=== PATIENT | female | born 1985 | race Caucasian/White ===

== ENCOUNTER → 2016-05-28 | Outpatient (CLI) | payer OTHER ==
[~2016-05-28] MED LIST: BCPILLS PO; ONDA4TAB7 SL; SERT50TA PO
[2016-05-28 13:52] LABS: URINE APPEARANCE CLEAR (CLEAR); URINE BILIRUBIN NEG (NEG); URINE COLOR YELLOW; URINE NITRITE NEG (NEG); URINE SPECIFIC GRAVITY 1.007 (1.000-1.030); UROBILINOGEN NEG (NEG)
[2016-05-28 14:00] LABS: MANUAL MICROSCOPIC REQUIRED? NO; REVIEW REQ? NO
== END | disposition home or self-care (01) ==
LOC: C.LABSPEC 15:21
PROVIDERS: ATTEND Obstetrics & Gynecology
DX: Z34.01 Encounter for supervision of normal first pregnancy, first trimester (principal)

== ENCOUNTER → 2016-06-03 | Outpatient (CLI) | payer OTHER ==
[2016-06-03 18:23] LABS: BASO % 0.2 %; BASO ABS # 0.02 K/uL (0-0.2); COMPLETE YES; EOS % 1.7 %; HEMATOCRIT 37.8 % (37-47); IG% 0.3 %; LYMPH % 36.5 %; LYMPH ABS # 3.92 K/uL (1.2-3.4); MEAN CELL VOLUME 83.4 fL (80-100); MEAN CORPUSCULAR HEMOGLOBIN 28.7 pg (25-34); MEAN CORPUSCULAR HGB CONC 34.4 g/dl (32-36); MEAN PLATELET VOLUME 9.8 fL (7.4-10.4); MONO % 5.1 %; NEUT % 56.2 %; PLATELET COUNT 256 K/uL (130-400); RED BLOOD COUNT 4.53 M/uL (4.2-5.4); WHITE BLOOD COUNT 10.75 K/uL (4.8-10.8)
[2016-06-03 18:53] LABS: ALT/SGPT 23 U/L (12-78); AST/SGOT 10 U/L (15-37); BLOOD UREA NITROGEN 11 mg/dl (7-18); BUN/CREATININE RATIO 16.8 (10-20); CALCIUM 8.9 mg/dl (8.5-10.1); CARBON DIOXIDE 27 mmol/L (21-32); CHLORIDE 105 mmol/L (98-107); CREATININE 0.64 mg/dl (0.60-1.20); GLUCOSE 82 mg/dl (70-99); POTASSIUM 3.3 mmol/L (3.5-5.1); SODIUM 139 mmol/L (136-145)
[2016-06-03 18:56] LABS: ALB/GLOB RATIO 1.2 (0.9-2); ALKALINE PHOSPHATASE 79 U/L (45-117)
== END | disposition home or self-care (01) ==
LOC: C.LAB1850 17:20
PROVIDERS: ATTEND Obstetrics & Gynecology
DX: Z34.01 Encounter for supervision of normal first pregnancy, first trimester (principal); O36.5910 Maternal care for other known or suspected poor fetal growth, first trimester, not applicable or unspecified

== ENCOUNTER → 2016-06-07 | Outpatient (CLI) | payer OTHER | END | disposition home or self-care (01) | LOC: C.LAB 10:21 | PROVIDERS: ATTEND Obstetrics & Gynecology | DX: O00.80 Other ectopic pregnancy without intrauterine pregnancy (principal); Z3A.00 Weeks of gestation of pregnancy not specified ==

== ENCOUNTER → 2016-06-10 | Outpatient (CLI) | payer OTHER ==
[2016-06-10 17:01] LABS: BASO % 0.1 %; BASO ABS # 0.01 K/uL (0-0.2); COMPLETE YES; EOS % 2.4 %; HEMATOCRIT 37.6 % (37-47); IG% 0.2 %; MEAN CELL VOLUME 83.6 fL (80-100); MEAN CORPUSCULAR HEMOGLOBIN 28.9 pg (25-34); MEAN CORPUSCULAR HGB CONC 34.6 g/dl (32-36); MEAN PLATELET VOLUME 9.1 fL (7.4-10.4); MONO % 4.8 %; NEUT % 51.5 %; PLATELET COUNT 249 K/uL (130-400); WHITE BLOOD COUNT 8.29 K/uL (4.8-10.8)
[2016-06-10 17:27] LABS: ALT/SGPT 20 U/L (12-78); BLOOD UREA NITROGEN 8 mg/dl (7-18); BUN/CREATININE RATIO 12.6 (10-20); CALCIUM 9.1 mg/dl (8.5-10.1); CARBON DIOXIDE 27 mmol/L (21-32); CHLORIDE 104 mmol/L (98-107); CREATININE 0.66 mg/dl (0.60-1.20); GLUCOSE 81 mg/dl (70-99); POTASSIUM 3.7 mmol/L (3.5-5.1); SODIUM 139 mmol/L (136-145)
[2016-06-10 17:30] LABS: ALB/GLOB RATIO 1.1 (0.9-2); ALKALINE PHOSPHATASE 82 U/L (45-117); AST/SGOT 11 U/L (15-37)
== END | disposition home or self-care (01) ==
LOC: C.LAB 16:35
PROVIDERS: ATTEND Obstetrics & Gynecology
DX: O00.80 Other ectopic pregnancy without intrauterine pregnancy (principal)

== ENCOUNTER → 2016-06-17 | Outpatient (CLI) | payer OTHER | END | disposition home or self-care (01) | LOC: C.LAB 17:24 | PROVIDERS: ATTEND Obstetrics & Gynecology | DX: O00.80 Other ectopic pregnancy without intrauterine pregnancy (principal) ==

== ENCOUNTER → 2016-06-24 | Outpatient (CLI) | payer OTHER | END | disposition home or self-care (01) | LOC: C.LAB 17:19 | PROVIDERS: ATTEND Obstetrics & Gynecology | DX: O00.80 Other ectopic pregnancy without intrauterine pregnancy (principal); Z3A.00 Weeks of gestation of pregnancy not specified ==

== ENCOUNTER → 2016-07-01 | Outpatient (CLI) | payer OTHER | END | disposition home or self-care (01) | LOC: C.LAB 18:04 | PROVIDERS: ATTEND Obstetrics & Gynecology | DX: O00.80 Other ectopic pregnancy without intrauterine pregnancy (principal) ==

== ENCOUNTER → 2017-01-30 | Outpatient (CLI) | payer OTHER | END | disposition home or self-care (01) | LOC: C.LAB1850 10:28 | PROVIDERS: ATTEND Obstetrics & Gynecology | DX: O00.80 Other ectopic pregnancy without intrauterine pregnancy (principal); O99.89 Other specified diseases and conditions complicating pregnancy, childbirth and the puerperium ==

== ENCOUNTER → 2017-03-10 | Outpatient (CLI) | payer OTHER | END | disposition home or self-care (01) | LOC: C.LAB1850 15:26 | PROVIDERS: ATTEND Obstetrics & Gynecology | DX: O20.0 Threatened abortion (principal); Z3A.00 Weeks of gestation of pregnancy not specified ==

== ENCOUNTER → 2017-03-18 | Outpatient (CLI) | payer OTHER | END | disposition home or self-care (01) | LOC: C.LAB1850 13:55 | PROVIDERS: ATTEND Obstetrics & Gynecology | DX: O02.1 Missed abortion (principal) ==

== ENCOUNTER → 2017-03-25 | Outpatient (CLI) | payer OTHER | END | disposition home or self-care (01) | LOC: C.LAB1850 10:47 | PROVIDERS: ATTEND Obstetrics & Gynecology | DX: O02.1 Missed abortion (principal) ==

== ENCOUNTER → 2017-04-02 | Outpatient (CLI) | payer OTHER | END | disposition home or self-care (01) | LOC: C.LAB1850 09:49 | PROVIDERS: ATTEND Obstetrics & Gynecology | DX: O02.1 Missed abortion (principal) ==

== ENCOUNTER 2018-09-21 05:58 | Inpatient (IN) ==
[2018-09-21] MEDS: LACTATED RINGER'S 1,000 ML IV PRN ×2 (06:25→08:57)
[2018-09-21] MEDS ORDERED: OXYTOCIN 30 UNITS/500 ML BAG IV PRN ×2 (06:27→15:32)
--- NOTE | 2018-09-21 06:33 | History & Physical Report ---
Date of Service September 21, 2018 Assessment & Plan (1) Prolonged , antepartum: - patient had been scheduled for induction - patient in active labor - pt desires epidural - anticipate History of Present Illness Chief Complaint: contractions Primary Care Provider: Jason Gutierrez MD The patient is a 32-year-old 4 para 0 with an EDC of 13 September by first trimester ultrasound admitted, at 41 weeks gestational age admitted for labor check. The patient states her contractions began at approximately 0100 hrs. and increased in intensity. The patient had been scheduled for an induction today and had had a cervical Abreu placed last evening. Patient states that the Abreu dislodged at approximately 0130 hrs. The patient has had a benign course. The father of the baby carries a diagnosis of neurofibromatosis. The patient and the partner had been offered a genetics [facility] consult but declined. Laboratory values for the show a blood type of O+, antibody negative, rubella immune, hepatitis B negative, she had a negative quad screen, she had a normal 1 hour Glucola x2, and a negative third trimester beta strep culture Allergies Allergy/AdvReac Type Severity Reaction Status Date / Time No Known Allergies AdvReac Unknown Verified 09/21/18 06:16 Home Medications Home Medications Medication Instructions Recorded Confirmed Type vit no.[id number] 1 tab PO DAILY 09/20/18 09/21/18 History [ Vitamin] sertraline [Zoloft] 150 mg PO DAILY 09/20/18 09/21/18 History Patient History Medical History Sleep disturbance (Acute) Maternal morbid obesity, antepartum (Acute) Lactose intolerance (Acute) Encounter for supervision of normal first in third trimester (Acute) Depression with anxiety (Acute) was taking zoloft 150mg, stopped over a month ago Allergic rhinitis (Acute) Low back pain (Acute) (Resolved) Kidney stone Surgical History Hx of oral surgery Family History Aunt Diabetes Social History Preferred Language: Estonian marital status: Current Living Situation: Family current occupational status: employed Feels Safe at Home: Yes Smoking Status: Current every day smoker Tobacco Type: cigarettes Cigarettes Per Day: 5 Hx Alcohol Use: No Hx Substance Use: No Physical Exam Constitutional: WD/WN, vitals as above Respiratory: Auscultation: lungs clear to auscultation bilaterally Cardiovascular: RRR, no murmur, no edema Extremities: no calf tenderness Gastrointestinal (Abdomen): Gravid, vtx, (+) FHT's, EFW 7 1/2 LBS Genitourinary: OB Exam Monitor Tracing: + category I and + normal FHT variability Cervix: 5/80/-2 Results & Data Vital Signs (Past 12 Hours) Vital Signs Pulse BP 09/21/18 06:08 89 157/79 H
[2018-09-21] MEDS ORDERED: BUPIVACAINE 0.25% 30 ML VIAL ONE ×2 (06:34→09:53)
[2018-09-21] MEDS ORDERED: fentaNYL citrate 100 MCG/2 ML VIAL ONE ×2 (06:35→09:53)
[2018-09-21] MEDS ORDERED: ePHEDrine sulfate 50 MG/ML AMP ONE (06:35)
[2018-09-21] MEDS ORDERED: fentaNYL 2MCG/ML ROPIV 1.25MG/ML 100 ML BAG EPI ONE (06:35)
[2018-09-21 06:44] LABS: Hematocrit (blood only) 33.8 % (37-47); Hemoglobin 11.4 g/dL (12.0-16.0); Mean Corpuscular Volume 81.6 fL (80-100); Mean Platelet Volume 11.2 fL (7.4-10.4); Platelet Count 246 K/uL (130-400); RDW Coefficient of Variation 13.9 % (11.5-14.5); RDW Standard Deviation 41.9 fL (36.4-46.3); Red Blood Count 4.14 M/uL (4.2-5.4)
[2018-09-21 06:45] LABS: Mean Corpuscular Hgb Conc 33.7 g/dL (32-36)
--- NOTE | 2018-09-21 07:02 | Anesthesiology Consultation ---
Date of Service September 21, 2018 Assessment & Plan (1) Encounter for pre-operative examination: Chart Review Chart Review: Acceptable Risk for Labor Epidural History Height/Weight Height: 5 ft 6 in Weight: 111.584 kg Allergies Allergy/AdvReac Type Severity Reaction Status Date / Time No Known Allergies Allergy Verified 09/21/18 06:35 Medications Home Medications Medication Instructions Recorded Confirmed Last Taken vit no.[id number] 1 tab PO DAILY 09/20/18 09/21/18 09/20/18 [ Vitamin] sertraline [Zoloft] 150 mg PO DAILY 09/20/18 09/21/18 Unknown Active Medications Generic Name Dose Route Start Last Admin Trade Name Freq PRN Reason Stop Dose Admin Lactated Ringer's 1,000 mls @ 125 mls/hr 09/21/18 06:27 09/21/18 06:25 Lr IV 09/23/18 06:26 999 mls/hr .Q8H PRN Administration L&D Protocol Protocol Past Medical History Medical History Sleep disturbance (Acute) Maternal morbid obesity, antepartum (Acute) Lactose intolerance (Acute) Encounter for supervision of normal first in third trimester (Acute) Depression with anxiety (Acute) was taking zoloft 150mg, stopped over a month ago Allergic rhinitis (Acute) Low back pain (Acute) (Resolved) Kidney stone Past Family History Family History Aunt Diabetes Past Surgical History Surgical History Hx of oral surgery Social History Smoking Status: Current every day smoker tobacco type: cigarettes Smoking cigarettes per day: 5 Do You Dip or Chew Tobacco: No Hx Alcohol Use: No Hx Substance Use: No substance use type: does not use Physical Exam Vital Signs Last Vital Signs Temp 36.8 C 09/21/18 06:18 Pulse 89 09/21/18 06:18 Resp 20 09/21/18 06:18 BP 157/79 H 09/21/18 06:18 Testing Laboratory Results 09/21/18 06:33
[2018-09-21] MEDS ORDERED: NALOXONE HCL 0.4 MG/1 ML VIAL/CARP IV PRN (07:34)
[2018-09-21] MEDS ORDERED: ONDANSETRON INJ 2 MG/ML 2 ML VIAL IV PRN (07:34)
[2018-09-21] MEDS ORDERED: NALOXONE HCL 1 MG in SODIUM CHLORIDE 0.9% 1000ML 1,000 ML IV PRN (07:34)
[2018-09-21] MEDS ORDERED: ePHEDrine sulfate 50 MG/ML AMP IV PRN (07:34)
[2018-09-21] MEDS ORDERED: fentaNYL 2MCG/ML ROPIV 1.25MG/ML 100 ML BAG EPI PRN (07:34)
--- NOTE | 2018-09-21 10:40 | Obstetrical Progress Note ---
Date of Service September 21, 2018 Subjective Comfortable with epidural redose. FHT Cat 1 [place] Q 3-4 min Results & Data Vital Signs (Past 12 Hours) Vital Signs Temp Pulse Resp BP Pulse Ox 09/21/18 10:37 113 H 120/59 L 09/21/18 10:35 127 H 96 09/21/18 10:30 106 H 96 09/21/18 10:25 100 H 96 09/21/18 10:22 90 93 09/21/18 10:20 105 H 96 09/21/18 10:17 87 108/57 L 94 09/21/18 10:15 112 H 16 95 09/21/18 10:13 107 H 116/55 L 09/21/18 10:12 92 H 94 09/21/18 10:09 93 H 94 09/21/18 10:07 121 H 108/65 09/21/18 10:04 110 H 97 09/21/18 10:01 107 H 115/67 09/21/18 10:00 20 09/21/18 09:59 114 H 95 09/21/18 09:54 104 H 96 09/21/18 09:51 108 H 94 09/21/18 09:49 106 H 95 09/21/18 09:47 99 H 120/58 L 09/21/18 09:44 90 96 09/21/18 09:39 116 H 97 09/21/18 09:34 116 H 96 09/21/18 09:33 123 H 139/74 09/21/18 09:30 20 09/21/18 09:29 122 H 94 09/21/18 09:24 127 H 97 09/21/18 09:19 103 H 97 09/21/18 09:17 100 H 130/72 09/21/18 09:15 76 93 09/21/18 09:14 93 H 93 09/21/18 09:10 79 94 09/21/18 09:09 83 95 09/21/18 09:04 97 H 96 09/21/18 09:03 92 H 94 09/21/18 09:02 85 131/68 09/21/18 09:00 18 09/21/18 08:59 93 H 96 09/21/18 08:55 88 94 09/21/18 08:54 91 H 96 09/21/18 08:49 103 H 97 09/21/18 08:47 100 H 127/77 09/21/18 08:44 78 93 09/21/18 08:40 75 93 09/21/18 08:39 77 95 09/21/18 08:34 79 94 09/21/18 08:32 78 126/63 09/21/18 08:30 18 09/21/18 08:29 81 95 09/21/18 08:27 95 H 94 09/21/18 08:24 99 H 95 09/21/18 08:19 87 97 09/21/18 08:17 78 121/59 L 09/21/18 08:15 18 09/21/18 08:14 81 95 09/21/18 08:13 88 94 09/21/18 08:09 80 94 09/21/18 08:08 76 94 09/21/18 08:04 91 H 95 09/21/18 08:02 85 133/64 09/21/18 08:00 18 09/21/18 07:59 90 97 09/21/18 07:54 87 98 09/21/18 07:49 89 96 09/21/18 07:46 94 H 133/63 09/21/18 07:45 20 09/21/18 07:44 99 H 96 09/21/18 07:42 92 H 131/72 09/21/18 07:39 94 H 97 09/21/18 07:38 94 H 129/67 09/21/18 07:34 96 H 120/65 97 09/21/18 07:30 96 H 20 126/66 09/21/18 07:29 96 H 97 09/21/18 07:27 100 H 130/68 09/21/18 07:24 102 H 97 09/21/18 07:23 100 H 166/77 H 09/21/18 07:19 114 H 98 09/21/18 07:18 105 H 161/80 H 09/21/18 07:15 109 H 22 163/78 H 09/21/18 07:14 109 H 98 09/21/18 07:12 93 H 159/76 H 09/21/18 07:07 36.9 C 103 H 18 149/80 H 09/21/18 06:18 36.8 C 89 20 157/79 H 09/21/18 06:08 36.8 C 89 20 157/79 H
--- NOTE | 2018-09-21 11:14 | Obstetrical Progress Note ---
Date of Service September 21, 2018 Subjective Comfortable with epidural. FHT Cat 1 [place] Q 2-3 SVE 9/100/-1. AROM clear fluid. Results & Data Vital Signs (Past 12 Hours) Vital Signs Temp Pulse Resp BP Pulse Ox 09/21/18 11:10 127 H 96 09/21/18 11:08 115 H 131/75 09/21/18 11:05 93 H 93 09/21/18 11:00 124 H 96 09/21/18 10:55 97 H 94 09/21/18 10:52 106 H 116/57 L 09/21/18 10:50 102 H 93 09/21/18 10:49 109 H 93 09/21/18 10:45 117 H 96 09/21/18 10:40 102 H 93 09/21/18 10:37 113 H 120/59 L 09/21/18 10:35 127 H 96 09/21/18 10:30 106 H 96 09/21/18 10:25 100 H 96 09/21/18 10:22 90 93 09/21/18 10:20 105 H 96 09/21/18 10:17 87 108/57 L 94 09/21/18 10:15 112 H 16 95 09/21/18 10:13 107 H 116/55 L 09/21/18 10:12 92 H 94 09/21/18 10:09 93 H 94 09/21/18 10:07 121 H 108/65 09/21/18 10:04 110 H 97 09/21/18 10:01 107 H 115/67 09/21/18 10:00 20 09/21/18 09:59 114 H 95 09/21/18 09:54 104 H 96 09/21/18 09:51 108 H 94 09/21/18 09:49 106 H 95 09/21/18 09:47 99 H 120/58 L 09/21/18 09:44 90 96 09/21/18 09:39 116 H 97 09/21/18 09:34 116 H 96 09/21/18 09:33 123 H 139/74 09/21/18 09:30 20 09/21/18 09:29 122 H 94 09/21/18 09:24 127 H 97 09/21/18 09:19 103 H 97 09/21/18 09:17 100 H 130/72 09/21/18 09:15 76 93 09/21/18 09:14 93 H 93 09/21/18 09:10 79 94 09/21/18 09:09 83 95 09/21/18 09:04 97 H 96 09/21/18 09:03 92 H 94 09/21/18 09:02 85 131/68 09/21/18 09:00 18 09/21/18 08:59 93 H 96 09/21/18 08:55 88 94 09/21/18 08:54 91 H 96 09/21/18 08:49 103 H 97 09/21/18 08:47 100 H 127/77 09/21/18 08:44 78 93 09/21/18 08:40 75 93 09/21/18 08:39 77 95 09/21/18 08:34 79 94 09/21/18 08:32 78 126/63 09/21/18 08:30 18 09/21/18 08:29 81 95 09/21/18 08:27 95 H 94 09/21/18 08:24 99 H 95 09/21/18 08:19 87 97 09/21/18 08:17 78 121/59 L 09/21/18 08:15 18 09/21/18 08:14 81 95 09/21/18 08:13 88 94 09/21/18 08:09 80 94 09/21/18 08:08 76 94 09/21/18 08:04 91 H 95 09/21/18 08:02 85 133/64 09/21/18 08:00 18 09/21/18 07:59 90 97 09/21/18 07:54 87 98 09/21/18 07:49 89 96 09/21/18 07:46 94 H 133/63 09/21/18 07:45 20 09/21/18 07:44 99 H 96 09/21/18 07:42 92 H 131/72 09/21/18 07:39 94 H 97 09/21/18 07:38 94 H 129/67 09/21/18 07:34 96 H 120/65 97 09/21/18 07:30 96 H 20 126/66 09/21/18 07:29 96 H 97 09/21/18 07:27 100 H 130/68 09/21/18 07:24 102 H 97 09/21/18 07:23 100 H 166/77 H 09/21/18 07:19 114 H 98 09/21/18 07:18 105 H 161/80 H 09/21/18 07:15 109 H 22 163/78 H 09/21/18 07:14 109 H 98 09/21/18 07:12 93 H 159/76 H 09/21/18 07:07 36.9 C 103 H 18 149/80 H 09/21/18 06:18 36.8 C 89 20 157/79 H 09/21/18 06:08 36.8 C 89 20 157/79 H
--- NOTE | 2018-09-21 13:13 | Obstetrical Progress Note ---
Date of Service September 21, 2018 Subjective Anterior lip of cervix, station 1+. Feeling very uncomfortable after epidural redose. Pushed against anterior lip, this slipped behind head. Now complete dilation, +1.5 station. Will continue to push. FHT with variable decelerations and early decels. [place] Q 2 min. Results & Data Vital Signs (Past 12 Hours) Vital Signs Temp Pulse Resp BP Pulse Ox 09/21/18 13:05 122 H 98 09/21/18 13:04 109 H 94 09/21/18 13:00 133 H 100 09/21/18 12:58 116 H 85 L 09/21/18 12:56 111 H 150/73 H 09/21/18 12:55 115 H 99 09/21/18 12:52 100 H 152/74 H 09/21/18 12:50 109 H 96 09/21/18 12:47 100 H 170/87 H 94 09/21/18 12:45 102 H 94 09/21/18 12:42 98 H 94 09/21/18 12:40 104 H 95 09/21/18 12:37 103 H 155/76 H 09/21/18 12:36 101 H 94 09/21/18 12:35 101 H 95 09/21/18 12:30 95 H 93 09/21/18 12:25 107 H 94 09/21/18 12:23 106 H 92 09/21/18 12:22 103 H 151/72 H 09/21/18 12:20 112 H 95 09/21/18 12:18 98 H 94 09/21/18 12:15 112 H 94 09/21/18 12:11 113 H 94 09/21/18 12:10 111 H 95 09/21/18 12:07 102 H 152/75 H 09/21/18 12:05 106 H 96 09/21/18 12:00 107 H 96 09/21/18 11:59 103 H 94 09/21/18 11:55 108 H 94 09/21/18 11:54 107 H 147/74 H 09/21/18 11:53 106 H 94 09/21/18 11:50 104 H 95 09/21/18 11:45 109 H 96 09/21/18 11:40 111 H 99 09/21/18 11:38 81 140/74 09/21/18 11:36 91 H 93 09/21/18 11:35 95 H 97 09/21/18 11:30 84 95 09/21/18 11:25 84 94 09/21/18 11:24 98 H 94 09/21/18 11:23 129 H 123/76 09/21/18 11:20 105 H 96 09/21/18 11:18 91 H 93 09/21/18 11:15 108 H 95 09/21/18 11:10 127 H 96 09/21/18 11:08 37.1 C 115 H 18 131/75 09/21/18 11:05 93 H 93 09/21/18 11:00 124 H 96 09/21/18 10:55 97 H 94 09/21/18 10:52 106 H 116/57 L 09/21/18 10:50 102 H 93 09/21/18 10:49 109 H 93 09/21/18 10:45 117 H 96 09/21/18 10:40 102 H 93 09/21/18 10:37 113 H 120/59 L 09/21/18 10:35 127 H 96 09/21/18 10:30 106 H 96 09/21/18 10:25 100 H 96 09/21/18 10:22 90 93 09/21/18 10:20 105 H 96 09/21/18 10:17 87 108/57 L 94 09/21/18 10:15 112 H 16 95 09/21/18 10:13 107 H 116/55 L 09/21/18 10:12 92 H 94 09/21/18 10:09 93 H 94 09/21/18 10:07 121 H 108/65 09/21/18 10:04 110 H 97 09/21/18 10:01 107 H 115/67 09/21/18 10:00 20 09/21/18 09:59 114 H 95 09/21/18 09:54 104 H 96 09/21/18 09:51 108 H 94 09/21/18 09:49 106 H 95 09/21/18 09:47 99 H 120/58 L 09/21/18 09:44 90 96 09/21/18 09:39 116 H 97 09/21/18 09:34 116 H 96 09/21/18 09:33 123 H 139/74 09/21/18 09:30 20 07/01/19 09:29 122 H 94 09/21/18 09:24 127 H 97 09/21/18 09:19 103 H 97 09/21/18 09:17 100 H 130/72 09/21/18 09:15 76 93 09/21/18 09:14 93 H 93 09/21/18 09:10 79 94 09/21/18 09:09 83 95 09/21/18 09:04 97 H 96 09/21/18 09:03 92 H 94 09/21/18 09:02 85 131/68 09/21/18 09:00 18 09/21/18 08:59 93 H 96 09/21/18 08:55 88 94 09/21/18 08:54 91 H 96 09/21/18 08:49 103 H 97 09/21/18 08:47 100 H 127/77 09/21/18 08:44 78 93 09/21/18 08:40 75 93 09/21/18 08:39 77 95 09/21/18 08:34 79 94 09/21/18 08:32 78 126/63 09/21/18 08:30 18 09/21/18 08:29 81 95 09/21/18 08:27 95 H 94 09/21/18 08:24 99 H 95 09/21/18 08:19 87 97 09/21/18 08:17 78 121/59 L 09/21/18 08:15 18 09/21/18 08:14 81 95 09/21/18 08:13 88 94 09/21/18 08:09 80 94 09/21/18 08:08 76 94 09/21/18 08:04 91 H 95 09/21/18 08:02 85 133/64 09/21/18 08:00 18 09/21/18 07:59 90 97 09/21/18 07:54 87 98 09/21/18 07:49 89 96 09/21/18 07:46 94 H 133/63 09/21/18 07:45 20 09/21/18 07:44 99 H 96 09/21/18 07:42 92 H 131/72 09/21/18 07:39 94 H 97 09/21/18 07:38 94 H 129/67 09/21/18 07:34 96 H 120/65 97 09/21/18 07:30 96 H 20 126/66 09/21/18 07:29 96 H 97 09/21/18 07:27 100 H 130/68 09/21/18 07:24 102 H 97 09/21/18 07:23 100 H 166/77 H 09/21/18 07:19 114 H 98 09/21/18 07:18 105 H 161/80 H 09/21/18 07:15 109 H 22 163/78 H 09/21/18 07:14 109 H 98 09/21/18 07:12 93 H 159/76 H 09/21/18 07:07 36.9 C 103 H 18 149/80 H 09/21/18 06:18 36.8 C 89 20 157/79 H 09/21/18 06:08 36.8 C 89 20 157/79 H
--- NOTE | 2018-09-21 15:20 | Procedure Note ---
Vaginal Delivery Summary Date of Service September 21, 2018 Vaginal Delivery Summary Vaginal Delivery Summary: Pre-delivery diagnoses: 32yo @ 41 03/30, induction of labor for postdates, FOB with neurofibromatosis, h/o miscarriage, obesity, tobacco use Post-delivery diagnoses: same, 2nd degree perineal laceration Procedure: spontaneous vaginal delivery, repair of 2nd degree perineal laceration Surgeon: Shi Lyons DO Complications: none Findings: Viable female . Apgars: 9/9 . Weight pending, please see nursery records. Estimated blood loss: 400ml Description of delivery: The patient progressed to complete with epidural anesthesia. She then began to push. She spontaneously vaginally delivered a viable female from the cephalic presentation. The head delivered in XAVI position. Nuchal cord x 1, delivered through. The anterior shoulder delivered, followed by the posterior shoulder, followed by the body. The baby was placed on mother's abdomen and a spontaneous cry was heard. Delayed cord clamping was employed, and the cord was doubly clamped and cut. Cord blood was obtained. Active management of the 3rd stage of labor, and avulsion of the umbilical cord occurred. The placenta was then delivered through manual extraction, intact with a 3-vessel cord. The uterus and vagina were swept of clots and debris. IV pitocin was given. The uterus became firm. The cervix, vagina, and perineum were inspected and a 2nd degree laceration was noted and repaired with 3-0 vicryl in standard fashion. Excellent hemostasis was observed. The mother and baby are recovering in stable and good condition in the room. Sponge, needle, and instrument counts were correct x 2. Will give ancef x 1 dose due to manual extraction of placenta. Patient wishes to restart her Zoloft after delivery. DO JASSON ValderramaG
[2018-09-21] MEDS ORDERED: ACETAMINOPHEN 325 MG TAB PO PRN (15:32)
[2018-09-21] MEDS ORDERED: DIPHTHERIA/TETANUS/PERTUSSIS 0.5 ML SYR/VIAL IM ONE (15:32)
[2018-09-21] MEDS ORDERED: OXYCODONE/ACETAMINOPHEN 5mg/325mg TAB PO PRN (15:32)
[2018-09-21] MEDS ORDERED: SUPERCREAM 0.870% 15 GM JAR EXT PRN (15:32)
[2018-09-21] MEDS ORDERED: CEFAZOLIN 1000MG 1,000 MG/7.5 ML SYR IV SCH (15:32)
[2018-09-21] MEDS ORDERED: HYDROCORTISONE ACETATE 25 MG SUPP PR PRN (15:32)
[2018-09-21] MEDS ORDERED: BENZOCAINE 20% AER SPR 82.5 GM CAN EXT PRN (15:32)
[2018-09-21] MEDS: IBUPROFEN 600 MG TAB PO PRN ×2 (15:59→21:04)
--- NOTE | 2018-09-21 16:14 | Anesthesia Procedure Note ---
Date of Service September 21, 2018 Anesthesia Post Epidural Note Vital Signs Vital Signs: Temp Pulse Resp BP Pulse Ox 36.8 C 108 H 18 140/75 92 09/21/18 14:45 09/21/18 16:00 09/21/18 14:45 09/21/18 16:00 09/21/18 14:07 Pain Intensity Bilateral Abdomen: Pain Intensity: 7 Notes Mental Status: alert / awake / arousable and participated in evaluation Nausea / Vomiting: adequately controlled Pain: adequately controlled Airway Patency, RR, SpO2: stable & adequate BP & HR: stable & adequate Hydration State: stable & adequate Neuraxial Anesthesia: was administered and sensory block is resolving Anesthetic Complications: no major complications apparent Epidural: Removed without complications and With tip intact
[2018-09-21] MEDS: DOCUSATE SODIUM 100 MG CAP PO SCH (21:04)
[2018-09-22] MEDS: IBUPROFEN 600 MG TAB PO PRN ×3 (03:19→16:31)
[2018-09-22] MEDS: DOCUSATE SODIUM 100 MG CAP PO SCH ×2 (07:49→20:35)
[2018-09-22] MEDS: PRENATAL VITAMIN 1 TAB PO SCH (07:49)
--- NOTE | 2018-09-22 08:08 | Obstetrical Progress Note ---
Date of Service September 22, 2018 Assessment & Plan (1) Status post vaginal delivery: PPD#1 doing well. Zoloft ordered to be restarted today, she will start at 50mg daily. She has an appointment with PCP on 10/01, and has plans to gradually increase back up to her prior dosage of 150. She will contact our office or [facility] if she'd like to coordinate counseling. Murray was placed overnight after 2x straight caths, this was removed this morning with good output. Will monitor ability to urinate throughout the day today. Subjective Ambulation: ambulating normally Voiding: murray catheter in place (required murray overnight - this was just removed. will monitor today.) Passing Gas:: Yes Diet Tolerance:: regular diet Lochia:: Moderate Feeding Type:: breast feeding PPD#1. Is tearful this morning, is feeling like she needs to restart her Zoloft. Review of Systems All systems reviewed & are unremarkable except as noted in HPI & below Physical Exam Gen: AAOx3 NAD CV: RRR L: CTAB Abd: soft, NTTP. Fundus firm, below umbilicus. Ext: 1+ edema Results & Data Vital Signs (Past 12 Hours) Vital Signs Temp Pulse Resp BP 09/22/18 03:15 36.7 C 102 H 18 134/81 09/21/18 23:45 36.8 C 82 18 118/77
[2018-09-22 08:10] LABS: Hematocrit (blood only) 28.2 % (37-47); Hemoglobin 9.3 g/dL (12.0-16.0)
[2018-09-22] MEDS ORDERED: PRENATAL VITAMIN 1 TAB PO SCH (09:00)
[2018-09-22] MEDS ORDERED: SERTRALINE HCL 50 MG TABLET PO SCH (09:00)
[2018-09-22] MEDS: SERTRALINE HCL 50 MG TABLET PO SCH (09:02)
[2018-09-22] MEDS ORDERED: BISACODYL 5 MG TABEC PO SCH (20:00)
[2018-09-23] MEDS: IBUPROFEN 600 MG TAB PO PRN ×3 (01:01→09:05)
--- NOTE | 2018-09-23 08:13 | Obstetrical Progress Note ---
Date of Service September 23, 2018 Assessment & Plan (1) Status post vaginal delivery: Doing well. Plan d/c. Instructions given. Day #:: 2 Subjective Ambulation: ambulating normally Voiding: no voiding problems Passing Gas:: Yes Diet Tolerance:: regular diet Lochia:: Small Feeding Type:: breast feeding Physical Exam Constitutional WD/WN, vitals as above Cardiovascular Extremities: no calf tenderness and no edema Gastrointestinal (Abdomen) soft, nt, nd fundus firm, nt at 1 below u Results & Data Vital Signs (Past 12 Hours) Vital Signs Temp Pulse Resp BP Pulse Ox 09/23/18 07:54 36.5 C 85 16 118/70 09/22/18 23:45 36.9 C 83 18 122/73 99
[2018-09-23] MEDS ORDERED: BISACODYL 10 MG SUPP PR PRN (09:00)
[2018-09-23] MEDS: PRENATAL VITAMIN 1 TAB PO SCH (09:05)
[2018-09-23] MEDS: SERTRALINE HCL 50 MG TABLET PO SCH (09:05)
[2018-09-23] MEDS: DOCUSATE SODIUM 100 MG CAP PO SCH (09:05)
== END 2018-09-23 12:35 | disposition home or self-care (01) | DRG 807 ==
LOC: 4S1 05:58 → 4S2 17:49